=== PATIENT | female | born 1990 | race Hispanic/Latino ===

== ENCOUNTER 2018-11-09 04:48 | Inpatient (IN) | payer MEDICAID ==
[2018-11-09] MEDS ORDERED: AMPICILLIN/NS 2 GM/100 ML 2 GM/100 ML BAG IV ONE ×2 (04:55→04:58)
[2018-11-09] MEDS ORDERED: BRETHINE SUB-Q PRN (04:55)
[2018-11-09] MEDS ORDERED: XYLOCAINE 2% INFILTRATI ONE (04:55)
[2018-11-09] MEDS ORDERED: MINERAL OIL PO PRN (04:55)
[2018-11-09] MEDS ORDERED: BRETHINE IVP PRN (04:55)
[2018-11-09] MEDS ORDERED: PITOCin/NS 20 UNIT/1000ML DRIP 20 UNITS/1,000 ML BAG IV SCH ×2 (05:00→09:08)
[2018-11-09] MEDS ORDERED: LACTATED RINGERS 1,000 ML IV SCH (05:00)
[2018-11-09] MEDS ORDERED: SUBLIMAZE ONE (05:22)
--- NOTE | 2018-11-09 05:44 | History and Physical Report ---
History of Present Illness Date of examination: 11/09/18 Date of admission: 11/09/18 04:56 Chief complaint: labor History of present illness: EDC Calculations by LMP 11/02/2018 Past History : 3 Term Births: 2 Premature Births: 0 Living Children: 2 Para: 2 Mult. Births: 0 Prev : 0 Prev. attempt? none Aborta: 0 Elect. Ab: 0 Spont. Ab: 0 Ectopics: 0 # 1 Delivery date: 01/11/2012 Weeks Gestation: term labor: no Delivery type: Anesthesia type: epidural Delivery location: [facility] Infant Sex: Male weight: 6#8 Name: Colin # 2 Delivery date: 01/11/2013 Weeks Gestation: term labor: no Delivery type: Anesthesia type: epidural Delivery location: [facility] Sex: Female weight: 6#8 Name: Tiffany Past Medical History: ovarian cysts anemia with past pregnancies Ovarian Cysts depression, no medication. 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 of genital herpes: no Partner hx. of genital herpes: no Rash, Viral, or Febrile illness since last LMP? no Varicella/Chicken Pox Status: Previous Disease TB Risk: no Infection History Comments: trich may 2018 Genetic History Congenital Heart Defect: Mom: no Dad: no Chantelle Disease: Mom: no Dad: no Thalassemia Mom: no Dad: no Neural Tube Defect Mom: no Dad: no Down's Syndrome Mom: no Dad: no Boyd-Sachs Mom: no Dad: no Sickle Cell Disease/Trait Mom: no Dad: no Hemophilia Mom: no Dad: no Muscular Dystrophy Mom: no Dad: no Cystic Fibrosis Mom: no Dad: no [place] Chorea Mom: no Dad: no Mental Retardation Mom: no Dad: no Fragile X Mom: no Dad: no Other Genetic/Chromosomal Disorder Mom: no Dad: no Child w/other defect Mom: no Dad: no Enviromental Exposures Enviromental Exposures Reviewed Xray Exposure: no Medication, drug, or alcohol use since LMP: no Chemical/Other Exposure: no Exposure to Cat Liter: no Hx of Parvovirus (Fifth Disease): no Occupational Exposure to Children: none Active Medications (reviewed today): None Current Allergies (reviewed today): No known allergies Past History Past Medical History: other (see HPI) Past Surgical History: other (see HPI) 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: other (see HPI) Family/Genetic History: other (see HPI) - Obstetrical History Expected Date of Delivery: 11/02/18 Actual Gestation: 41 Week(s) 0 Day(s) : 3 Para: 2 Hx # Term Pregnancies: 2 Number of Pregnancies: 0 Spontaneous Abortions: 0 Induced : 0 Number of Living Children: 1 Medications and Allergies Allergies Allergy/AdvReac Type Severity Reaction Status Date / Time No Known Allergies Allergy Verified 11/09/18 04:54 Active Meds: Active Medications Ephedrine Sulfate (Ephedrine Sulfate) 10 mg IV Q2M PRN PRN Reason: Hypotension Oxytocin/Sodium Chloride (Pitocin/Ns 20 Unit/1000ml Drip) 20 units in 1,000 mls @ 125 mls/hr IV DIRECT HERIBERTO Last Admin: 11/09/18 05:34 Dose: 125 mls/hr Documented by: Lactated Ringer's (Lactated Ringers) 1,000 mls @ 125 mls/hr IV DIRECT HERIBERTO Ampicillin Sodium (Ampicillin/Ns 2 Gm/100 Ml) 2 gm in 100 mls @ 100 mls/hr IV ONCE ONE; Protocol Stop: 11/09/18 05:54 Ampicillin Sodium (Ampicillin/Ns 1 Gm/50 Ml) 1 gm in 50 mls @ 100 mls/hr IV Q4HR HERIBERTO; Protocol Mineral Oil (Mineral Oil) 30 ml PO QHS PRN PRN Reason: Constipation Terbutaline Sulfate (Brethine) 0.25 mg SUB-Q ONCE PRN PRN Reason: Hyperstimulation/Hypertonicity Terbutaline Sulfate (Brethine) 0.25 mg IVP ONCE PRN PRN Reason: Hyperstimulation/Hypertonicity Review of Systems All systems: negative - Vital Signs Vital signs: Vital Signs Temp 97.7 F 11/09/18 05:32 Temp Pulse Resp BP Pulse Ox 97.7 F 11/09/18 05:32 - Physical Exam Breasts: Positive: normal Cardiovascular: Regular rate Lungs: Positive: Clear to auscultation, Normal air movement Abdomen: Positive: normal appearance, soft Genitourinary (Female): Positive: normal external genitalia, normal perenium Vulva: both: normal Vagina: Positive: normal moisture Uterus: Positive: normal size, normal contour Anus/Rectum: Positive: normal perianal skin Extremities: Positive: normal Deep Tendon Reflex Grade: Normal +2 - Obstetrical Cervical Dilatation: 10 Cervical Effacement Percentage: 100 station: +3 Uterine Contraction Pattern: Regular Uterine Tone Measurement Phase: Contraction Uterine Contraction Intensity: Moderate Results All other labs normal. Assessment and Plan 28y/o @ 41 weeks presented in active labor and progressed from 5 to complete in 20 minutes. Admission orders in EMR. - Patient Problems (1) 41 weeks gestation of Current Visit: Yes Status: Acute (2) GBS carrier Current Visit: Yes Status: Acute (3) Active labor at term Current Visit: Yes Status: Acute
--- NOTE | 2018-11-09 05:52 | Procedure Note ---
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 NICU in room for assessment. crying and vigorous, placed skin to skin. 3 vessel cord clamped and cut after cessation of pulsation. Placenta del intact and complete. 1st degree teresa laceration repaired in the usual fashion using lidocaine. EBL 300. Apgars 8/9. mother and baby remain LDR stable. - Infant A at 1 minute: 8 at 5 minutes: 9 Gender: Male (7#5oz)
[2018-11-09] MEDS ORDERED: IBUPROFEN PO PRN (06:09)
[2018-11-09 06:38] LABS: Hematocrit 28.4 % (30.3-42.9); Hemoglobin 9.6 gm/dl (10.1-14.3); Mean Corpuscular HGB Conc 34 % (30-34); Mean Corpuscular Volume 84 fl (79-97); Platelet Count 141 K/mm3 (140-440); Red Cell Distribution Width 15.4 % (13.2-15.2)
[2018-11-09] MEDS ORDERED: PERCOCET 5/325 PO ONE (06:38)
[2018-11-09] MEDS ORDERED: AMPICILLIN/NS 1 GM/50 ML 1 GM/50 ML BAG IV SCH (08:55)
[2018-11-09] MEDS ORDERED: PHENERGAN PO PRN (09:08)
[2018-11-09] MEDS ORDERED: BENADRYL PO PRN (09:08)
[2018-11-09] MEDS ORDERED: LANSINOH TP PRN (09:08)
[2018-11-09] MEDS ORDERED: SODIUM CHLORIDE FLUSH SYRINGE 10 ML IV NR (09:08)
[2018-11-09] MEDS ORDERED: TYLENOL PO PRN (09:08)
[2018-11-09] MEDS ORDERED: DERMOPLAST TP PRN (09:08)
[2018-11-09] MEDS ORDERED: TUCKS PAD TP PRN (09:08)
[2018-11-09] MEDS ORDERED: ZOFRAN IV PRN (09:08)
[2018-11-09] MEDS ORDERED: DULCOLAX PR PRN (10:00)
[2018-11-09] MEDS: COLACE PO SCH ×2 (10:46→23:41)
[2018-11-09] MEDS: PRENATAL VITAMIN PO SCH (10:46)
[2018-11-09] MEDS: NORCO 5/325 PO PRN ×2 (12:52→18:23)
[2018-11-09] MEDS: IBUPROFEN PO SCH ×3 (12:53→23:40)
[2018-11-09 20:49] LABS: Hematocrit 28.4 % (30.3-42.9); Hemoglobin 9.6 gm/dl (10.1-14.3)
[2018-11-09] MEDS ORDERED: MILK OF MAGNESIA PO PRN (22:00)
[2018-11-10] MEDS ORDERED: SUBLIMAZE IV PRN (05:22)
[2018-11-10] MEDS ORDERED: BOOSTRIX IM ONE (06:00)
[2018-11-10] MEDS: IBUPROFEN PO SCH ×4 (06:04→23:47)
[2018-11-10] MEDS: PRENATAL VITAMIN PO SCH (10:59)
[2018-11-10] MEDS: COLACE PO SCH ×2 (10:59→23:47)
--- NOTE | 2018-11-10 13:20 | Progress Note ---
Assessment and Plan PPD1 s/p . Patient reports feeling well, she denies any complaints or concerns at this time. Fundus is firm, ML, U/1. Vaginal bleeding is small, patient denies any clots or heavy bleeding. She reports pain is well controlled with medications. She reports breast feeding is going well, infant is doing well. Post delivery H&H results reviewed. Patient denies any dizziness or feeling faint with position changes or ambulation today. VSSAF, will continue to monitor BPs. Continue POC. Plan for discharge tomorrow morning. Subjective - Subjective Date of service: 11/10/18 Principal diagnosis: PPD1 s/p Patient reports: appetite normal, voiding normally, pain well controlled, ambulating normally : doing well Objective - Vital Signs Latest vital signs: Vital Signs Temp Pulse Resp BP BP Pulse Ox 11/10/18 07:23 98 F 65 18 84/45 11/09/18 23:46 98.5 F 72 18 93/45 98 11/09/18 16:31 97.7 F 41 L 18 95/57 Intake and Output 11/09/18 11/10/18 11/10/18 23:59 07:59 15:59 Intake Total 480 840 Balance 480 840 Intake: Oral 480 840 Other: Total, Intake Amount 480 480 # Voids Void 1 1 - Exam Breasts: Present: normal Cardiovascular: Present: Regular rate, Normal S1, Normal S2 Lungs: Present: Clear to auscultation, Normal air movement Abdomen: Present: normal appearance, soft, normal bowel sounds Vulva: both: normal Uterus: Present: normal, firm, fundal height below umbilicus Extremities: Present: normal Deep Tendon Reflex Grade: Normal +2 - Labs Labs: Abnormal lab results 11/09/18 Range/Units 20:19 Hgb 9.6 L (10.1-14.3) gm/dl Hct 28.4 L (30.3-42.9) %
[2018-11-11] MEDS: IBUPROFEN PO SCH (06:07)
--- NOTE | 2018-11-11 09:21 | Discharge Summary ---
Providers - Providers Date of Admission: 11/09/18 04:56 Date of discharge: 11/11/18 Attending physician: ABISAI MAN Primary care physician: ABISAI MAN Hospitalization Reason for admission: labor Condition: Good Pertinent studies: post delivery H&H 9.6/28.4. Pre-existing anemia noted prior to delivery. Pt is asymptomatic. Procedures: Hospital course: uncomplicated Delivery and course Disposition: DC- TO HOME OR SELFCARE Core Measure Documentation - Palliative Care Palliative Care/ Comfort Measures: Not Applicable - Core Measures Any of the following diagnoses?: none Exam - Constitutional Vitals: Temp Pulse Resp BP Pulse Ox 98.1 F 57 L 18 105/41 98 11/11/18 07:38 11/11/18 07:38 11/11/18 07:38 11/11/18 07:38 11/09/18 23:46 General appearance: Present: no acute distress, well-nourished - EENT Eyes: Present: PERRL ENT: hearing intact, clear oral mucosa - Neck Neck: Present: supple, normal ROM - Respiratory Respiratory effort: normal Respiratory: bilateral: CTA - Cardiovascular Rhythm: regular Heart Sounds: Present: S1 & S2. Absent: rub, click - Extremities Extremities: pulses symmetrical, No edema Peripheral Pulses: within normal limits - Abdominal General gastrointestinal: Present: soft, non-tender, non-distended, normal bowel sounds Female genitourinary: Present: normal - Integumentary Integumentary: Present: clear, warm, dry - Musculoskeletal Musculoskeletal: gait normal, strength equal bilaterally - Psychiatric Psychiatric: appropriate mood/affect, intact judgment & insight - Neurologic Neurologic: CNII-XII intact, moves all extremities Plan Activity: no restrictions Diet: regular Follow up with: ABISAI MAN MD [Primary Care Provider] - 12/09/18 (Congratulations! Please call [phone] to schedule your appointment in 4 weeks. Please schedule your son's circumcision appointment in our office in 1 week. Bring EMLA cream with you to his appointment and await further instructions for use. Call with any questions or concerns. ) Prescriptions: Docusate Sodium [Colace] 100 mg PO BID PRN #60 capsule PRN Reason: Constipation Lidocain2.5%/Prilocai2.5% [Emla] 5 gm TP ONCE #1 tube Ferrous Sulfate [Feosol 325 MG tab] 325 mg PO BID #60 tablet
[2018-11-11] MEDS ORDERED: FEOSOL PO SCH (10:00)
[2018-11-11] MEDS: COLACE PO SCH (10:58)
[2018-11-11] MEDS: PRENATAL VITAMIN PO SCH (10:58)
[2018-11-11 13:20] VITALS: BP 108/51
== END 2018-11-11 12:00 | disposition home or self-care (01) | DRG 775 ==
LOC: TRG 04:48 → LD 04:56 → OB 08:12
PROVIDERS: ADMIT Obstetrics & Gynecology; ATTEND Obstetrics & Gynecology
PROC: 10E0XZZ Delivery of Products of Conception, External Approach (ICD-10-PCS; principal; 2018-11-09)
PROC: 0HQ9XZZ Repair Perineum Skin, External Approach (ICD-10-PCS; 2018-11-09)
DX: O77.0 Labor and delivery complicated by meconium in amniotic fluid (principal); O62.3 Precipitate labor; O70.0 First degree perineal laceration during delivery; O99.02 Anemia complicating childbirth; D64.9 Anemia, unspecified; Z3A.41 41 weeks gestation of pregnancy; Z37.0 Single live birth
CPT/HCPCS: 36415; 85014; 85018; 85027; 86592; 86762; 86850; 86900; 86901; G0378; A6250; J0290; J2590; J3010; J7120